=== PATIENT | female | born 1955 | race Caucasian/White ===

== ENCOUNTER 2016-12-04 13:37 | Emergency (ER) | payer BC ==
--- NOTE | 2016-12-04 15:24 | UC ---
Truncal Trauma HPI - HPI Summary HPI Summary: complaint of left arm pain and chest wall pain following being kicked by a horse today at 12:30 horse kicked her in the arm and her arm hit her in the face knocked the wind out of her for several minutes horse without horseshoes chest wall pain to the left of sternum left arm forearm pain that radiates to the elbow pain increases with movement hasn't needed to take any medication for pain denies headache, neck pain, shortness of breath,nausea and dizziness, abdominal and back pain - History Of Current Complaint Chief Complaint: UCTrauma Stated Complaint: ARM INJURY Time Seen by Provider: 12/04/16 15:05 Hx Obtained From: Patient Mechanism Of Injury: Direct Blow Aggravating Factor(s): Movement Alleviating factor(s): Rest, Ice - Allergies/Home Medications Allergies/Adverse Reactions: Allergies Allergy/AdvReac Type Severity Reaction Status Date / Time Atropine [From Lomotil] Allergy Unknown Verified 12/04/16 14:20 Reaction Details Diphenoxylate [From Lomotil] Allergy Unknown Verified 12/04/16 14:20 Reaction Details Sulfa Antibiotics Allergy Hives/Diff. Verified 12/04/16 14:19 Breathing/I tching Sulfisoxazole Allergy Unknown Verified 12/04/16 14:20 [From Gantrisin] Reaction Details Home Medications: Home Medications Aspirin [Aspirin 81 MG TAB] 81 mg PO DAILY 12/04/16 [History Confirmed 12/04/16] DOXYcycline CAP(*) [DOXYcycline 100MG CAP(*)] 100 mg PO BID 12/04/16 [History Confirmed 12/04/16] PMH/Surg Hx/FS Hx/Imm Hx Previously Healthy: Yes Endocrine History Of: Denies: Diabetes Cardiovascular History Of: Denies: Cardiac Disorders, Hypertension Respiratory History Of: Denies: COPD - Surgical History Surgical History: Yes Surgery Procedure, Year, and Place: Tubal Ligation - Family History Known Family History: Negative: Cardiac Disease, Hypertension, Diabetes - Social History Occupation: Employed Full-time Lives: With Family Alcohol Use: None Substance Use Type: None Smoking Status (MU): Never Smoked Tobacco Review of Systems Constitutional: Negative Skin: Negative Eyes: Negative ENT: Negative Respiratory: Negative Cardiovascular: Negative Gastrointestinal: Negative Genitourinary: Negative Motor: Negative Neurovascular: Negative Musculoskeletal: Other: - left arm pain' chest wall pain left side of face Neurological: Negative Psychological: Negative All Other Systems Reviewed And Are Negative: Yes Physical Exam Triage Information Reviewed: Yes Appearance: No Pain Distress, Well-Nourished Vital Signs: Initial Vital Signs Temp 97.2 F 12/04/16 14:17 Pulse 62 12/04/16 14:17 Resp 16 12/04/16 14:17 BP 120/64 12/04/16 14:17 Pulse Ox 100 12/04/16 14:17 Vital Signs Reviewed: Yes Eyes: Positive: Conjunctiva Clear, Other: - PERRL EOMI orbits- non tender, no ecchymosis left side of face small area of erythema over cheekbone ENT: Positive: Pharynx normal, TMs normal. Negative: Nasal congestion, Nasal drainage Neck: Positive: Other: - no cspine tendernss Respiratory: Positive: Lungs clear, Normal breath sounds, No respiratory distress, No accessory muscle use Cardiovascular: Positive: RRR, No Murmur, Pulses Normal, Brisk Capillary Refill Abdomen Description: Positive: Nontender, No Organomegaly, Soft. Negative: CVA Tenderness (R), CVA Tenderness (L), Distended, Guarding Bowel Sounds: Positive: Present Musculoskeletal: Positive: Other: - left Elbow -No bony deformities, inflammation, or tenderness in olecranon, medial, lateral epicondyle elbow. Full ROM upon flexion and extension. left forearm- edema erythema nd tendersness mid forearm no wrist tenderness chest- tenderness and edema over left side of sternum and left 4th 5th 6th ribs near sternum Neurological: Positive: Alert Psychological Exam: Normal Skin Exam: Normal Procedures - Splinting Location: left forearm Hand-Made Type: orthoglass Splint: sugar-tong Pre-Proc Neuro Vasc Exam: normal Post-Proc Neuro Vasc Exam: normal Truncal Trauma Course/Dx - Course Course Of Treatment: exam completed. ECG shows sinus bradycardia, no ectopy. x -ray shows left displaced ulnar fracture - Differential Dx/Diagnosis Differential Diagnosis/HQI/PQRI: Chest Wall Contusion, Chest Wall Abrasion, Pneumothorax, Rib Fracture, Other - left arm fracture Provider Diagnoses: left displaced ulnar fracture - Physician Notification/Consults Discussed Patient Care With: Dr Sawyer Time Discussed With Above Provider: 17:04 Discharge - Discharge Plan Condition: Stable Disposition: HOME Prescriptions: Acetaminop/Codeine 30 MG TAB* [Tylenol/Codeine 30 MG TAB*] 1 tab PO Q6H PRN #28 tab MDD 4 PRN Reason: Pain Ibuprofen TAB* [Motrin TAB* 800 MG] 800 mg PO Q8H #30 tab Patient Education Materials: Arm Fracture in Adults (ED) Referrals: No Primary Care Phys,NOPCP [Primary Care Provider] - Quan Sawyer MD [Medical Doctor] - Additional Instructions: Please call computer operations specialist for an appointment. They will evaluate and determine your treatment. It is important to keep weight off of your fracture. Wear splint until you are seen by orthopedics. Take acetaminophen or ibuprofen to control pain and reduce inflammation. Please review your discharge instructions. If your symptoms worsen call computer operations specialist or return to urgent care.
--- NOTE | 2016-12-04 15:50 | RAD ---
HISTORY: Chest trauma COMPARISONS: None VIEWS: 2: Frontal dual-energy and lateral views of the chest. FINDINGS: CARDIOMEDIASTINAL SILHOUETTE: The cardiomediastinal silhouette is normal. JOSÉ MIGUEL: The josé miguel are normal. PLEURA: The costophrenic angles are sharp. No pleural abnormalities are noted. LUNG PARENCHYMA: The lungs are clear. ABDOMEN: The upper abdomen is clear. There is no subphrenic gas. BONES AND SOFT TISSUES: There is diffuse osteopenia. There is no displaced fracture. OTHER: None. IMPRESSION: NO ACTIVE CARDIOPULMONARY DISEASE.
--- NOTE | 2016-12-04 15:50 | RAD ---
HISTORY: Trauma to left forearm COMPARISONS: None VIEWS: 2, Frontal and lateral views of the left forearm FINDINGS: BONE DENSITY: Normal. BONES: There is a minimally displaced fracture of the ulnar diaphysis. JOINTS: There is no arthropathy. ALIGNMENT: There is no dislocation. SOFT TISSUES: Unremarkable. OTHER FINDINGS: None. IMPRESSION: MINIMALLY DISPLACED MID ULNAR FRACTURE
--- NOTE | 2016-12-04 15:55 | RAD ---
HISTORY: Left arm injury COMPARISONS: None VIEWS: 2, Frontal and lateral views of the left elbow. The lateral view is performed and extension. FINDINGS: BONE DENSITY: Normal. BONES: There is no displaced fracture. JOINTS: There is no arthropathy. Evaluation of a joint effusion is limited by positioning; however, there is no obvious supracondylar fat pad ALIGNMENT: There is no dislocation. SOFT TISSUES: Unremarkable. OTHER FINDINGS: None. IMPRESSION: NO ACUTE OSSEOUS INJURY. IF SYMPTOMS PERSIST, RECOMMEND REPEAT IMAGING.
[2016-12-04] MEDS ORDERED: Ibuprofen TAB* 400 MG PO ONE (17:02)
== END 2016-12-04 17:15 | disposition home or self-care (01) ==
LOC: UCEAST 13:37
DX: S52.202A Unspecified fracture of shaft of left ulna, initial encounter for closed fracture (principal); W55.12XA Struck by horse, initial encounter; Y93.9 Activity, unspecified; Y92.9 Unspecified place or not applicable; R07.89 Other chest pain; Z88.2 Allergy status to sulfonamides; Z88.8 Allergy status to other drugs, medicaments and biological substances
CPT/HCPCS: 71020; 93005; 99202; A9270-GY; G0463

== ENCOUNTER 2017-10-14 12:36 | Emergency (ER) | payer BC ==
[2017-10-14 12:54] VITALS: BP 119/78
[2017-10-14] MEDS ORDERED: Lidocaine 1% MPF* 2 ML VIAL INJ ONE (13:31)
--- NOTE | 2017-10-14 14:33 | UC ---
Jordana Sánchez Rebecca, [facility] on 10/14/17 at 1319 . Laceration HPI - HPI Summary HPI Summary: In room: Pt is a 61 y/o F who presents to [facility] c/o laceration. Pt's dog had eaten raisins, which is poisonous to dogs, so she was trying to give one medication to induce vomiting. While doing so, the dog's jaw was clenched and while trying to force the dog's teeth open, the point of the canine tooth on the dog lacerated the left hand web space between the thumb and pointer finger. This was not a bite, rather the movement of the patients hand that caused the end of the dogs canine tooth. Associated pain is currently moderate, ranked 5/ 10. 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 Denies any other symptoms. Right hand dominant. Tetanus UTD, last vaccinated fall of 2016. Dog's vaccinations are UTD. MD: Vital signs stable, afebrile, 5/10 pain, left web space laceration, multiple allergies including Sulfa. Visit history noncontributory. Nurse's: pt was trying to get her dog to vomit after eating rasins. pt cut her lt hand webbing between her thumb and first finger. pt washed it with bedidine and tried to close it with super glue. pt states she had her tetnus a few months ago. - History Of Current Complaint Chief Complaint: UCLaceration Stated Complaint: CUT HAND Time Seen by Provider: 10/14/17 13:04 Hx Obtained From: Patient Laceration Location: Hand - left hand, web space between thumb and pointer finger Mechanism Of Injury: Sharp Trauma - Dog canine tooth Onset/Duration: Still Present Severity: Moderate Pain Intensity: 5 Pain Scale Used: 0-10 Numeric Related History: Dominant Hand Right - Allergies/Home Medications Allergies/Adverse Reactions: Allergies Allergy/AdvReac Type Severity Reaction Status Date / Time atropine [From Lomotil] Allergy Unknown Verified 10/14/17 12:55 Reaction Details diphenoxylate [From Lomotil] Allergy Unknown Verified 10/14/17 12:55 Reaction Details Sulfa (Sulfonamide Allergy Unknown Verified 10/14/17 12:55 Antibiotics) Reaction Details sulfisoxazole Allergy Unknown Verified 10/14/17 12:55 [From Gantrisin] Reaction Details PMH/Surg Hx/FS Hx/Imm Hx - Additional Past Medical History Additional PMH: NEGATIVE PMHx: CAD, HTN, DM - Surgical History Surgical History: Yes Surgery Procedure, Year, and Place: Tubal Ligation - Family History Known Family History: Positive: Cardiac Disease - father Negative: Hypertension, Diabetes - Social History Alcohol Use: None Substance Use Type: None Smoking Status (MU): Never Smoked Tobacco Review of Systems Constitutional: Negative Skin: Other - Laceration, left hand web space Eyes: Negative ENT: Negative Respiratory: Negative Cardiovascular: Negative Gastrointestinal: Negative Genitourinary: Negative Motor: Negative Neurovascular: Negative Musculoskeletal: Negative Neurological: Negative Psychological: Negative All Other Systems Reviewed And Are Negative: Yes - Comments Additional Review of Systems Comments: POSITIVE: Left hand web space laceration Physical Exam - Summary Physical Exam Summary: Appearance: The patient is well-appearing, is in no pain distress, and is well- nourished. Eyes: Conjunctiva are clear. ENT: The hearing is grossly normal, the pharynx is normal, and the TMs are normal. There is no muffled or hoarse voice. Neck: The neck is supple and there is no lymphadenopathy. Respiratory: The chest is nontender. The lungs are clear, there are normal breath sounds, and there is no respiratory distress. Cardiovascular: Heart is regular rate and rhythm. There is no murmur. Abdomen: The abdomen is soft and nontender. There is no organomegaly. Bowel sounds: present Musculoskeletal: Strength is intact. The patient moves all extremities. Neurological: The patient is alert. Psychological: The patient displays age appropriate behavior Skin: Negative for rashes. Wound is in the web space of the left hand. It is a 1 cm superficial laceration through the skin, not engaging the tendons. FROM and no neurologic or circulatory deficit. On the ulnar aspect, there is 1 cm of leftover super glue. Triage Information Reviewed: Yes Vital Signs: Initial Vital Signs Temp 97.5 F 10/14/17 12:48 Pulse 93 10/14/17 12:48 Resp 18 10/14/17 12:48 BP 119/78 10/14/17 12:48 Pulse Ox 100 10/14/17 12:48 Vital Signs Reviewed: Yes Laceration Repair - Laceration Repair 1 Laceration Size After Repair: Length (cm) - 1 cm skin tear Contamination/FB Removal: Wound was copiously irrigated with 500 cc of pressure wash and irrigated with betadine. It was explored and there was no FB. Anesthesia Used: 1.0% Lido - Used to anesthetize the wound edges Cleansing Completed Via Routine Prep: Yes Closure Material: Sutures - 1 suture placed in the middle of the 1cm skin tear Closure Method: Single Layer Suture Of: Skin Suture Type: Nylon - 5.0 nylon Re-Evaluation - Re-Evaluation First Eval Re-Evaluation Time: 13:34 Comment: Discussed the risks and benefits of laceration repair. Laceration Course/Dx - Course/Dx Course Of Treatment: 61 y/o F with a 1 cm superficial laceration through the skin of the left hand web space, not engaging the tendons. Explained the risks of suturing a puncture wound dog bite, such as infection. I recognize that this was not a puncture wound but did happen in the environment of a dogs mouth. Also explained that this is a highly moveable area of the hand and that the laceration is unlikely to close without repair. Ensured that she understands that with laceration repair, she will need antibiotics. Patient expressed understanding and that she would like to proceed with the laceration repair. The pt will follow up in 2 days for a wound check and will be started on Doxycycline and Metronidazole for 5 days. The suture will be taken out in 7-10 days. She will be closely followed by her own physician and knows to call or go to the ED if there are any signs of infection. Normal BP reading and no follow- up instructions required. Medications have been included in the original chart and reviewed. Allergies noted. - Differential Dx - Laceration/Wound Provider Diagnoses: Skin tear from dog canine Discharge - Sign-Out/Discharge Documenting (check all that apply): Discharge - Discharge - Discharge Plan Condition: Stable Disposition: HOME Prescriptions: DOXYcycline CAP(*) [DOXYcycline 100MG CAP(*)] 100 mg PO BID #10 cap MDD 2 metroNIDAZOLE [Flagyl 500 MG TAB] 500 mg PO TID #15 tab MDD 3 Patient Education Materials: Animal Bite (ED) Referrals: Augustus Hall MD [Primary Care Provider] - Additional Instructions: PLEASE SEEK CARE AT THE EMERGENCY DEPARTMENT IF SYMPTOMS WORSEN OR IF NEW SYMPTOMS DEVELOP. FOLLOW UP WITH YOUR PRIMARY CARE PHYSICIAN. WE DISCUSSED: 1. You have a skin tear on the web space of your left hand from your dog. 2. It has been cleansed and a single suture placed. 3. Clean morning and night with warm soapy water; don't soak. Redress with antibiotic ointment and protection. Put pressure on wound for bleeding. 4. I have given you two antibiotics for 5 days. Take metronidazole, three times a day. Take doxycyline, twice a day. 5. See your doctor in 2 days to make sure there is no infection. 6. Suture should be taken out in 7 days. 7. Recheck at any time for increased pain, temperature, bleeding or redness. 8. Call us with any questions or concerns. - Billing Disposition and Condition Condition: STABLE Disposition: HOME The documentation as recorded by the Jordana melendrez Rebecca accurately reflects the service I personally performed and the decisions made by me, Robinson Olivera MD.
== END 2017-10-14 14:35 | disposition home or self-care (01) ==
LOC: UCEAST 12:36
DX: S61.412A Laceration without foreign body of left hand, initial encounter (principal); W45.8XXA Other foreign body or object entering through skin, initial encounter; Y93.89 Activity, other specified; Y92.9 Unspecified place or not applicable; Z88.2 Allergy status to sulfonamides; Z88.8 Allergy status to other drugs, medicaments and biological substances
CPT/HCPCS: 12001; 99212; G0463

== ENCOUNTER 2019-04-21 09:24 | Emergency (ER) | payer BC ==
[2019-04-21 09:40] VITALS: BP 115/71
--- NOTE | 2019-04-21 10:11 | UC ---
Hand/Wrist HPI - HPI Summary HPI Summary: Ms. Medeiros got poked at the base of her right volar index DIP in the barn last Monday. She went to her PCP and got started on Keflex. It is less painful now but the erythema and swelling has extended down the finger and she is concerned. She can move it but it is stiff. - History Of Current Complaint Chief Complaint: UCUpperExtremity Stated Complaint: INFECTED FINGER Time Seen by Provider: 04/21/19 09:55 Hx Obtained From: Patient Onset/Duration: Sudden Onset Severity Initially: Mild Severity Currently: Mild Pain Intensity: 0 Character Of Pain: Aching Aggravating Factor(s): Other - touch Associated Signs And Symptoms: Positive: Swelling, Redness, Other - warmth - Allergies/Home Medications Allergies/Adverse Reactions: Allergies Allergy/AdvReac Type Severity Reaction Status Date / Time atropine [From Lomotil] Allergy Unknown Verified 04/21/19 09:40 Reaction Details diphenoxylate [From Lomotil] Allergy Unknown Verified 04/21/19 09:40 Reaction Details Sulfa (Sulfonamide Allergy Unknown Verified 04/21/19 09:40 Antibiotics) Reaction Details sulfisoxazole Allergy Unknown Verified 04/21/19 09:40 [From Gantrisin] Reaction Details Home Medications: Home Medications Cephalexin CAP* [Keflex 500 CAP*] 500 mg PO TID 04/21/19 [History Confirmed ] PMH/Surg Hx/FS Hx/Imm Hx Previously Healthy: Yes - Surgical History Surgical History: Yes Surgery Procedure, Year, and Place: Tubal Ligation - Family History Known Family History: Positive: Cardiac Disease - father Negative: Hypertension, Diabetes - Social History Alcohol Use: None Substance Use Type: None Smoking Status (MU): Never Smoked Tobacco Review of Systems All Other Systems Reviewed And Are Negative: Yes Constitutional: Negative: Fever, Chills Skin: Positive: Other - Erythema Motor: Positive: Negative Neurovascular: Positive: Negative Musculoskeletal: Positive: Edema Is Patient Immunocompromised?: No Physical Exam - Summary Physical Exam Summary: She is nontoxic in appearance with stable vitals. Appearance: Well-Appearing, No Pain Distress Vital Signs: Initial Vital Signs Temp 97.3 F 04/21/19 09:32 Pulse 73 04/21/19 09:32 Resp 18 10/13/19 09:32 BP 115/71 04/21/19 09:32 Pulse Ox 100 04/21/19 09:32 Vital Signs Reviewed: Yes Musculoskeletal Exam: Other - Her right indexfinger is swollen, warm and erythematous on the volar surface from the tip to just proximal to the PIP. She has no active or passive ROM tenderness at the PIP or DIP. Neurological Exam: Normal Skin Exam: Normal Hand/Wrist Course/Dx - Course Course Of Treatment: I think she is failing Keflex but I don't think that she needs IV antibiotics or surgery. She has no sign of deep infection. I am going to add Doxycycline. She is allergic to Sulfa. I cautioned her that if it continues to worsen, she will need to go to the ED for IV antibiotics and further evaluation. - Differential Dx/Diagnosis Provider Diagnosis: Finger infection Discharge ED - Sign-Out/Discharge Documenting (check all that apply): Patient Departure All imaging exams completed and their final reports reviewed: No Studies - Discharge Plan Condition: Stable Disposition: HOME Patient Education Materials: Wound Infection (ED) Referrals: Augustus Hall MD [Primary Care Provider] - Additional Instructions: Please follow up or go to the ED if you are not clearly improving in 2-3 days or if you are worsening. - Billing Disposition and Condition Condition: STABLE Disposition: Home
== END 2019-04-21 10:27 | disposition home or self-care (01) ==
LOC: UCEAST 09:24
DX: L08.89 Other specified local infections of the skin and subcutaneous tissue (principal); Z88.2 Allergy status to sulfonamides; Z88.8 Allergy status to other drugs, medicaments and biological substances
CPT/HCPCS: 99212; G0463